=== PATIENT | male | born 1965 | race Caucasian/White ===

== ENCOUNTER 2017-02-11 09:22 | Emergency (ER) | payer SELFPAY ==
[~2017-02-11] VITALS: Ht 160 cm; Wt 59.6 kg
[2017-02-11 09:24] VITALS: BP 136/85
== END 2017-02-11 10:57 | disposition left against medical advice (07) ==
LOC: ED 10:51
DX: R52 Pain, unspecified (principal)

== ENCOUNTER 2017-05-29 03:39 | Emergency (ER) | payer OTHER ==
[~2017-05-29] VITALS: Ht 175.3 cm; Wt 58.5 kg
[2017-05-29 03:40] VITALS: BP 132/85
[2017-05-29] MEDS ORDERED: DIPH,PERTUSS(ACELL),TET VAC/PF 0.5 ML IM-VACC ONE ×2 (04:00)
[2017-05-29] MEDS ORDERED: BACITRACIN ZINC OINT 500U/GM, 0.9 GM ONE (04:00)
[2017-05-29] MEDS ORDERED: LIDOCAINE 1%, 20ML INFIL ONE (04:00)
[2017-05-29] MEDS ORDERED: LIDOCAINE 1%, 20ML ONE (04:00)
== END 2017-05-29 04:58 | disposition home or self-care (01) ==
LOC: ED 03:55
DX: S61.210A Laceration without foreign body of right index finger without damage to nail, initial encounter (principal); G89.11 Acute pain due to trauma; F17.200 Nicotine dependence, unspecified, uncomplicated; X58.XXXA Exposure to other specified factors, initial encounter; Y93.89 Activity, other specified; Y92.89 Other specified places as the place of occurrence of the external cause; Y99.8 Other external cause status
CPT/HCPCS: 12001; 90471; 90715